=== PATIENT | female | born 1975 | race Caucasian/White ===

== ENCOUNTER 2018-05-15 21:27 | Emergency (ER) | payer MEDICAID ==
[2018-05-15 21:57] VITALS: BP 180/81
[2018-05-15] MEDS ORDERED: AMOXICILLIN TRIHYDRATE 500 MG CAPSULE PO ONE (22:28)
[2018-05-15] MEDS ORDERED: LIDOCAINE 2% VISCOUS SOLN 20 ML UDCUP PO ONE (22:28)
--- NOTE | 2018-05-15 22:33 | ER Document Report ---
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 She states that this tooth has had a hole in it for about 6 months. She states she is put a temporary putty into her tooth to help with the pain. She denies being allergic to any medications but states there are a lot of things she can take because of her heart problems. She states she takes amoxicillin not Pen- Vee K due to her heart. - HPI Patient complains to provider of: Toothache Onset: Other - Pain 2-3 days holding her to 6 months Onset: Gradual Quality of pain: Sharp, Throbbing Severity: Severe Pain Level: 5 Associated symptoms: Toothache Worsened by: Cold Relieved by: Nothing Similar symptoms previously: Yes Recently seen / treated by doctor/dentist: No Past Medical History - General Information source: Patient - Social History Smoking Status: Never Smoker Cigarette use (# per day): No Chew tobacco use (# tins/day): No Smoking Education Provided: No Frequency of alcohol use: Occasional Drug Abuse: None Lives with: Spouse/Significant other Family History: Reviewed & Not Pertinent Patient has suicidal ideation: No Patient has homicidal ideation: No - Medical History Medical History: Other - deaf - Past Medical History Cardiac Medical History: Reports: Hx Hypertension, Other - dextrocardia pacemaker Pulmonary Medical History: Reports: None EENT Medical History: Reports: Ears - deaf Neurological Medical History: Reports: None Endocrine Medical History: Reports: None Renal/ Medical History: Reports: None Malignancy Medical History: Reports: None GI Medical History: Reports: None Musculoskeletal Medical History: Reports Hx Musculoskeletal Trauma Skin Medical History: Reports None Psychiatric Medical History: Reports: None Traumatic Medical History: Reports: Hx Fractures - thumb Infectious Medical History: Reports: None Past Surgical History: Reports: Hx Open Heart Surgery, Hx Pacemaker, Other - Immunizations Immunizations up to date: Yes Review of Systems - Review of Systems Constitutional: No symptoms reported EENT: Mouth pain, Dental problem Cardiovascular: No symptoms reported Respiratory: No symptoms reported Gastrointestinal: No symptoms reported Genitourinary: No symptoms reported Female Genitourinary: No symptoms reported Musculoskeletal: No symptoms reported Skin: No symptoms reported Hematologic/Lymphatic: No symptoms reported Neurological/Psychological: No symptoms reported Physical Exam - Vital signs Vitals: Temp Pulse Resp BP Pulse Ox 98.8 F 80 16 180/81 H 97 05/15/18 21:56 05/15/18 21:56 05/15/18 21:56 05/15/18 21:56 05/15/18 21:56 Interpretation: Normal - General General appearance: Appears well, Alert - HEENT Head: Normocephalic, Atraumatic Eyes: Normal Pupils: PERRL Ears: Normal External canal: Normal Tympanic membrane: Normal Hearing loss: Left, Right Sinus: Normal Nasal: Normal Mouth/Lips: Caries Mucous membranes: Normal Teeth diagram: 1 - Dental pain: Large cavity Pharynx: Normal Neck: Normal - Respiratory Respiratory status: No respiratory distress Chest status: Nontender Breath sounds: Normal Chest palpation: Normal - Cardiovascular Rhythm: Regular Heart sounds: Normal auscultation Murmur: No - Abdominal Inspection: Normal Distension: No distension Bowel sounds: Normal Tenderness: Nontender Organomegaly: No organomegaly - Back Back: Normal, Nontender - Extremities General upper extremity: Normal inspection, Nontender, Normal color, Normal ROM , Normal temperature General lower extremity: Normal inspection, Nontender, Normal color, Normal ROM , Normal temperature, Normal weight bearing. No: Jayant's sign - Neurological Neuro grossly intact: Yes Cognition: Normal Orientation: AAOx4 [place] Coma Scale Eye Opening: Spontaneous Barry Coma Scale Verbal: Oriented Barry Coma Scale Motor: Obeys Commands [place] Coma Scale Total: 15 Speech: Normal Motor strength normal: LUE, RUE, LLE, RLE Sensory: Normal - Psychological Associated symptoms: Normal affect, Normal mood - Skin Skin Temperature: Warm Skin Moisture: Dry Skin Color: Normal Course - Re-evaluation Re-evalutation: 05/15/18 22:54 Patient was treated with amoxicillin and viscous lidocaine. Patient was discharged home with [facility] back. All questions and answers were written out by the provider and the patient. We attempted to get the [place] data base design analyst from our day but after a half an hour it still had not connected. Patient wrote out that she would prefer to just answer the questions by using pencil and paper. - Vital Signs Vital signs: Temp Pulse Resp BP Pulse Ox 98.8 F 80 16 180/81 H 97 05/15/18 21:56 05/15/18 21:56 05/15/18 21:56 05/15/18 21:56 05/15/18 21:56 Discharge - Discharge Clinical Impression: Pain due to dental caries Condition: Stable Disposition: HOME, SELF-CARE Additional Instructions: TOOTHACHE: Your pain is due to dental decay. The tooth must be repaired in order for you to feel better. You will, therefore, be referred to a dentist. We do not have dentists on the staff at [facility]. Severe swelling or drainage around a tooth usually means a dental abscess. This also requires evaluation and treatment by the dentist, but antibiotics may be prescribed while awaiting dental treatment. You should be rechecked immediately if you develop major swelling of the face, increasing pain, a lump in the jaw or gums, headache, difficulty swallowing, or fever. Amoxicillin Amoxicillin is a member of the penicillin family. It covers the germs likely to cause ear, bronchial, and urinary infections better than plain penicillin. Amoxicillin can be taken without regard to meals. Nausea after taking the medication is rare, but can occur. Diarrhea can occur, particularly in small children. Vaginal yeast infections and oral thrush in infants are also common. Contact your physician if these problems occur. Allergy to penicillins is common. If you have had an allergic reaction to any drug of the penicillin family, you should never take any other penicillin. Notify your doctor at once if you develop hives, itching, swelling, faintness, or shortness of breath. Less serious side effects can include nausea or diarrhea. Oral Narcotic Medication You have been given a [employer] dispense pack for pain control. This medication is a narcotic. It's best taken with food, as nausea can result if taken on an empty stomach. Don't operate machinery or drive within six hours of taking this medication. Do not combine this medicine with alcohol, or with any medication which can cause sedation (such as cold tablets or sleeping pills) unless you get permission from the physician. Narcotics tend to cause constipation. If possible, drink plenty of fluids and eat a diet high in fiber and fruits. Viscous lidocaine can be used every 2-3 hours while awake for your pain. These call dentist in the morning and schedule follow-up appointment. FOLLOW-UP CARE: You have been referred for follow-up care to the dentists listed below. Call the dentists office for an appointment as you were instructed or within the next two days. If you experience worsening or a significant change in your symptoms, notify the physician immediately or return to the Emergency Department at any time for re-evaluation. [facility] [address] [place], [place] Thursday mornings, by appointment [facility] [address] [place] [address] [facility] [address] [facility] [address] [facility] [address] [facility] [email or web address] [facility] [address] [place] [address] Thursday- 8:00am to 5:00 pm Will see patients from other [place] [facility]. Charges based on income and family size and accepts Medicare, Medicaid, and Insurances Will pull molars [facility] [address] Hours of Operation 8:00 am - 4:30 pm weekdays The following dental offices accept Medicaid: [facility] Dr. Narvaez Dr. Sampson Dr. Garcia Dr. Clarke Mg [place], [place], and [place] oral surgery Dr. Hughes ([place]) Dr. Watson ([place]) [facility] Drs. Guzmán and Anthony ([place]) Dr. Lopez ([place]) [facility] Dr. Ulloa ([place]) Drs. Cooley and ([place]) Medicaid Care Line Prescriptions: Amoxicillin 875 mg PO BID #20 tablet Forms: Elevated Blood Pressure
[2018-05-15] MEDS ORDERED: HYDROCODONE/ACETAMINOPHEN 5-325 MG (6 TAB/ER DISP) PO PRN (22:45)
== END 2018-05-15 22:55 | disposition home or self-care (01) ==
LOC: ER 21:27
DX: K02.9 Dental caries, unspecified (principal); K08.89 Other specified disorders of teeth and supporting structures; I10 Essential (primary) hypertension; Q24.0 Dextrocardia; Z95.0 Presence of cardiac pacemaker
CPT/HCPCS: 99282; J3490

== ENCOUNTER → 2018-06-03 | Outpatient (CLI) | payer MEDICAID ==
[2018-06-03 15:24] LABS: ANION GAP 16 (5-19); BLOOD UREA NITROGEN 14 mg/dL (7-20); CALCIUM 9.9 mg/dL (8.4-10.2); CARBON DIOXIDE 22 mmol/L (22-30); CHLORIDE 103 mmol/L (98-107); GLUCOSE 85 mg/dL (75-110); POTASSIUM 4.5 mmol/L (3.6-5.0); SODIUM 140.7 mmol/L (137-145)
== END ==
LOC: LAB 14:44
PROVIDERS: ATTEND Family Medicine
DX: R19.02 Left upper quadrant abdominal swelling, mass and lump (principal)
CPT/HCPCS: 36415; 80048

== ENCOUNTER → 2018-06-10 | Outpatient (CLI) | payer MEDICAID ==
--- NOTE | 2018-06-10 13:53 | RADIOLOGY REPORT (SQ) ---
EXAM DESCRIPTION: CT ABD/PELVIS WITH IV ONLY COMPLETED DATE/TIME: 06/10/2018 10:33 am REASON FOR STUDY: LEFT UPPER QUADRANT ABDOMINAL SWELLING, MASS AND LUMP R19.02 LEFT UPPER QUADRANT ABDOMINAL SWELLING, MASS AND LUMP COMPARISON: None. TECHNIQUE: CT scan of the abdomen and pelvis performed using helical scanning technique with dynamic intravenous contrast injection. No oral contrast. Images reviewed with lung, soft tissue, and bone windows. Reconstructed coronal and sagittal MPR images reviewed. Delayed images for evaluation of the urinary system also acquired. All images stored on PACS. All CT scanners at this facility use dose modulation, iterative reconstruction, and/or weight based d osing when appropriate to reduce radiation dose to as low as reasonably achievable (ALARA). [facility]: Dose Right [facility]: CareDose [facility]: Dose Right [facility]: Teradose 4D [facility]: Physician Referral Network (PRN) CONTRAST TYPE AND DOSE: contrast/concentration: Isovue 350.00 mg/ml; Total Contrast Delivered: 54.0 ml; Total Saline Delivered: 65.0 ml RENAL FUNCTION: None required. The patient is less than 50 years old. RADIATION DOSE: CT Rad equipment meets quality standard of care and radiation dose reduction techniq ues were employed. CTDIvol: 2.4 - 2.8 mGy. DLP: 260 mGy-cm.. LIMITATIONS: Respiratory motion, artifact from indwelling battery pack in the left mid abdomen. FINDINGS: LOWER CHEST: The patient's heart lies in the right hemithorax consistent with dextrocardia . LIVER: Normal size. No masses. No dilated ducts. SPLEEN: Normal size. No focal lesions. PANCREAS: No masses. No significant calcifications. No adjacent inflammation or peripancreatic fluid collections. Pancreatic duct not dilated. GALLBLADDER: There are layering gallstones. ADRENAL GLANDS: No significant masses or asymmetry. RIGHT KIDNEY AND URETER: No solid masses. No significant calcifications. No hydronephrosis or hyd roureter. LEFT KIDNEY AND URETER: No solid masses. No significant calcifications. No hydronephrosis or hydr oureter. AORTA AND VESSELS: No aneurysm. No dissection. Renal arteries, SMA, celiac without stenosis. RETROPERITONEUM: No retroperitoneal adenopathy, hemorrhage or masses. BOWEL AND PERITONEAL CAVITY: No masses or inflammatory changes. No free fluid or peritoneal masses. APPENDIX: Normal. PELVIS: There is a small right adnexal lesion consistent with ovarian cyst. ABDOMINAL WALL: No masses. No hernias. BONES: No significant or acute findings. OTHER: No other significant finding. IMPRESSION: 1. Dextrocardia. 2. No acute findings in the abdomen or pelvis. Specifically no mass or swelling in the left upper q uadrant. The patient does have a battery pack in the subcutaneous tissue just left of midline. TECHNICAL DOCUMENTATION: JOB ID: [id number] Quality ID # [id number]: Final reports with documentation of one or more dose reduction techniques (e.g., Au tomated exposure control, adjustment of the mA and/or kV according to patient size, use of iterative reconstruction technique) 2010 [employer]- All Rights Reserved Reading location - IP/workstation name: [email or web address]
== END ==
LOC: RAD 09:42
PROVIDERS: ATTEND Internal Medicine
DX: R19.02 Left upper quadrant abdominal swelling, mass and lump (principal)
CPT/HCPCS: 74177

== ENCOUNTER → 2018-08-16 | Outpatient (CLI) | payer MEDICAID | LOC: WI 13:55 | PROVIDERS: ATTEND Family Medicine | DX: Z12.31 Encounter for screening mammogram for malignant neoplasm of breast (principal) | CPT/HCPCS: 77067 ==

== ENCOUNTER 2018-08-29 15:58 | Emergency (ER) | payer MEDICAID ==
--- NOTE | 2018-08-29 18:02 | RADIOLOGY REPORT (SQ) ---
EXAM DESCRIPTION: RIBS LEFT W/PA CHEST COMPLETED DATE/TIME: 08/29/2018 5:52 pm REASON FOR STUDY: hit left ribs on kitchen table/ is dextracardic COMPARISON: None. TECHNIQUE: Frontal view of the chest and additional views of the left ribs acquired. NUMBER OF VIEWS: Three view. LIMITATIONS: None. FINDINGS: FRONTAL CXR: Dextrocardia. No pneumothorax. RIBS: No displaced rib fractures. No lytic or blastic bony lesions. OTHER: No other significant finding. IMPRESSION: NO PNEUMOTHORAX. NO DISPLACED RIB FRACTURES. COMMENT: SITE OF TRAUMA/COMPLAINT MARKED/STAMP COMPLETED: No TECHNICAL DOCUMENTATION: JOB ID: [id number] [employer]- All Rights Reserved Reading location - IP/workstation name: [email or web address]
[2018-08-29 18:18] VITALS: BP 136/72
--- NOTE | 2018-08-29 18:41 | ER Document Report ---
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 We seem to communicate well this way. Patient tells me that prior to her coming to the hospital tonight and she was attempting to get some type of a cookingturkey edition I believe off the shelf when she was coming down with that she tripped and fell and she landed on the kitchen table countertop and landed on her left ribs. She is complaining of shortness of breath hurts to take a deep breath and hurts to touch the area. She denies any other injuries at this time and is concerned she might of broke a rib. - CONSTITUTIONAL Constitutional: DENIES: Fever, Chills - EENT EENT: DENIES: Sore Throat, Ear Pain, Nasal Drainage-Clear, Nasal Drainage- Purulent, Congestion, Eye problems - NEURO Neurology: DENIES: Headache, Weakness, Vision blurred, Dizzinesss / Vertigo - CARDIOVASCULAR Cardiovascular: REPORTS: Chest pain - RESPIRATORY Respiratory: REPORTS: Trouble Breathing - GASTROINTESTINAL Gastrointestinal: DENIES: Abdominal Pain, Nausea, Patient vomiting, Diarrhea, Constipation, Black / Bloody Stools - URINARY Urinary: DENIES: Dysuria, Urgency, Frequency - REPRODUCTIVE Reproductive: DENIES: :, Postmenopausal, Abnormal bleeding / discharge - MUSCULOSKELETAL Musculoskeletal: DENIES: Extremity pain, Back Pain, Neck Pain, Swelling - DERM Skin Color: Normal, Petechiae Skin Problems: None, Abrasion Past Medical History - General Information source: Patient - Social History Smoking Status: Never Smoker Cigarette use (# per day): No Chew tobacco use (# tins/day): No Frequency of alcohol use: None Drug Abuse: None Family History: Reviewed & Not Pertinent Patient has suicidal ideation: No Patient has homicidal ideation: No - Medical History Medical History: Negative - Past Medical History Cardiac Medical History: Reports: None, Hx Hypertension Renal/ Medical History: Denies: Hx Peritoneal Dialysis Musculoskeletal Medical History: Reports Hx Musculoskeletal Trauma Traumatic Medical History: Reports: Hx Fractures - thumb Past Surgical History: Reports: Hx Open Heart Surgery, Hx Pacemaker, Other - Immunizations Immunizations up to date: Yes Vertical Provider Document - CONSTITUTIONAL Agree With Documented VS: Yes Exam Limitations: No Limitations, Other - As stated we used the eye filled for communication where I spoke into it and he gave the sentences that I spoke and she type back the answers. General Appearance: WD/WN, No Apparent Distress, Other - Uncomfortable appearing - INFECTION CONTROL TRAVEL OUTSIDE OF THE [place] IN LAST 30 DAYS: No - HEENT Notes: As stated is a well-nourished well-developed 42-year-old female who has a history of being a deaf mute. As stated we did communicate through her iPhone with me talking into it and her typing. We had no communication gap or problem. - NECK Neck: Normal Inspection, Supple, Thyroid Normal. negative: Lymphadenopathy-Left , Lymphadenopathy-Right - RESPIRATORY Respiratory: Breath Sounds Normal, No Respiratory Distress. negative: Chest Non -Tender, Rales, Rhonchi, Wheezing - CARDIOVASCULAR Cardiovascular: Regular Rate, Regular Rhythm, No Murmur - GI/ABDOMEN Gastrointestinal: Abdomen Soft, Abdomen Non-Tender. negative: Abdomen Tender, Abdominal Guarding, Abdominal Rebound, No Organomegaly, Hepatomegaly, Spleenomegaly, Abdominal Mass, Normal Bowel Sounds, Abnormal Bowel Sounds - BACK Back: Normal Inspection. negative: Abnormal Inspection, CVA Tenderness-Right, CVA Tenderness-Left - DERM Integumentary: Warm, Dry Adult Front & Back Diagram: 1 - Area of discomfort in the area of small abrasion. There is no ecchymosis noted. Notes: Stated patient shows just a area of abrasions along the left anterior lateral ribs. There does appear to be some history and treated to the rib contusions the patient was telling us about earlier. She did fall and land on that side on a table. At this present time I see no evidence of fractures and x-rays support that. Patient basically has bruised the ribs and it hurts. Course - Re-evaluation Re-evalutation: 08/29/18 18:42 I ensure patient actually hurt her ribs secondary to the visualization of the abrasions but also when the tenderness to palpation. I want to place her on a little bit of a muscle relaxer and a little bit of pain medication for couple of days. I have explained to her she is to take deep breaths or she will end up back here with pneumonia. She is acknowledged understanding of this through the iPhone. Patient acknowledged the understanding of having to take deep breaths and to splint herself. She has had open heart surgery in the past but he has of her dextrocardia at a young age. She will make herself take a deep breaths will return to ER if she has any concerns or problems. 08/29/18 21:00 - Vital Signs Vital signs: Temp Pulse Resp BP Pulse Ox 98.4 F 80 18 136/72 H 97 08/29/18 18:16 08/29/18 18:16 08/29/18 18:16 08/29/18 18:16 08/29/18 18:16 Discharge - Discharge Clinical Impression: Contusion of rib on left side Qualifiers: Encounter type: initial encounter Qualified Code(s): S20.212A - Contusion of left front wall of thorax, initial encounter Contusion, chest wall Qualifiers: Encounter type: initial encounter Laterality: left Qualified Code(s): S20.212A - Contusion of left front wall of thorax, initial encounter Condition: Stable Disposition: HOME, SELF-CARE Instructions: Rib Contusion ([facility]) Additional Instructions: Home and rest. As we discussed this easy for me to tell you that you did not break ribs but they hurt this bad. In reality bruised ribs hurt just as bad as fractured ribs. Is because you use them to do everything cough take deep breaths lift move lay down the ribs do everything. As we also discussed you must make yourself take deep breaths even though it hurts because if you do not you would be back in with pneumonia. As we also talked about you can use a pillow to hold against the area that hurts and this helps you take a deep breath with less pain. Should you have any concerns or problems during the recovery. Return to ER for a recheck. Highly suggest that you contact your primary care provider and have a follow-up visit with them sometime within the next 5-10 days. Prescriptions: Cyclobenzaprine HCl [Flexeril 10 mg Tablet] 10 mg PO TIDP PRN #21 tablet PRN Reason: Hydrocodone/Acetaminophen [[place] 5-325 Tablet] 1 each PO Q6 PRN #15 tablet PRN Reason: Forms: Elevated Blood Pressure Referrals: HUMA JHAVERI MD [Primary Care Provider] - Follow up as needed
[2018-08-29] MEDS ORDERED: HYDROCODONE/ACETAMINOPHEN 5-325 MG TABLET PO ONE (18:48)
== END 2018-08-29 18:57 | disposition home or self-care (01) ==
LOC: ER 15:58
DX: S20.212A Contusion of left front wall of thorax, initial encounter (principal); R07.81 Pleurodynia; W19.XXXA Unspecified fall, initial encounter; W22.03XA Walked into furniture, initial encounter; Y93.89 Activity, other specified; R06.02 Shortness of breath; H91.3 Deaf nonspeaking, not elsewhere classified; I10 Essential (primary) hypertension
CPT/HCPCS: 99283

== ENCOUNTER → 2019-01-21 | Outpatient (CLI) | payer MEDICAID | LOC: LAB 12:53 | PROVIDERS: ATTEND Pediatrics Pediatric Cardiology | DX: Z01.812 Encounter for preprocedural laboratory examination (principal) | CPT/HCPCS: 36415; 84702 ==

== ENCOUNTER → 2019-08-18 | Outpatient (CLI) | payer MEDICAID ==
--- NOTE | 2019-08-18 12:25 | WOMENS IMAGING REPORT ---
EXAM DESCRIPTION: 3D SCREENING MAMMO BILAT COMPLETED DATE/TIME: 08/18/2019 11:26 am REASON FOR STUDY: Z12.31 SCREENING MAMMO Z12.31 ENCNTR SCREEN MAMMOGRAM FOR MALIGNANT NEOPLASM OF B RE COMPARISON: 2018 EXAM PARAMETERS: Views: Standard craniocaudal and mediolateral oblique views of each breast recorded using digital acquisition and breast tomosynthesis. Read with the assistance of CAD. .[facility] - [employer] Operator Version 9.2 LIMITATIONS: None. FINDINGS: No suspicious masses, suspicious calcifications or architectural distortion. No areas of c oncern. IMPRESSION: NEGATIVE MAMMOGRAM. BIRADS 1. BREAST DENSITY: c. The breasts are heterogeneously dense, which may obscure small masses. BIRAD: ASSESSMENT: 1 NEGATIVE RECOMMENDATION: ROUTINE SCREENING COMMENT: The patient has been notified of the results by letter per SA requirements. Additional no tification policies are in place for contacting patient with suspicious or incomplete findings. Quality ID #[id number]: The [employer] recommends an annual screening mammogram for women aged 40 years or over. This facility utilizes a reminder system to ensure that all patients receive reminder letters, and/or direct phone calls for appointments. This includes reminders for routine scr eening mammograms, diagnostic mammograms, or other Breast Imaging Interventions when appropriate. Th is patient will be placed in the appropriate reminder system. TECHNICAL DOCUMENTATION: FINDING NUMBER: (1) ASSESSMENT: (1) JOB ID: [id number] [employer]- All Rights Reserved Reading location - IP/workstation name: [email or web address]
== END ==
LOC: WI 10:50
PROVIDERS: ATTEND Family Medicine
DX: Z12.31 Encounter for screening mammogram for malignant neoplasm of breast (principal)
CPT/HCPCS: 77063; 77067

== ENCOUNTER 2020-06-07 21:11 | Emergency (ER) | payer MEDICAID ==
[2020-06-07] MEDS ORDERED: ACETAMINOPHEN 325 MG TABLET PO ONE (21:26)
--- NOTE | 2020-06-07 21:33 | ER Document Report ---
ED Extremity Problem, Lower - General Chief Complaint: Ankle Injury Stated Complaint: ANKLE INJURY Time Seen by Provider: 06/07/20 21:16 Primary Care Provider: HUMA JHAVERI MD [Primary Care Provider] - Follow up as needed ENEDINA GUARDADO JR, DO [ACTIVE PROVISIONAL STAFF] - Follow up as needed Mode of Arrival: Wheelchair Information source: Patient Cannot obtain history due to: Other - Patient is deaf used mac developer [id number] Notes: 44-year-old female presented to ED for complaint of to her left ankle for the last 3 days. She states while he was sleeping the put his leg over top of her leg and when she tried to get it out it bent her ankle backwards. She states she thought the pain will go away but is getting worse instead of better. She does have swelling to the left ankle. 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 She states she also has blood pressure that gets high and low but her doctor has told her that is normal for her condition she states she was also told that her blood pressure always had to be taken in her leg. She states she also has endometriosis and is supposed to get a hysterectomy next week. She does have an IUD and does not have history of cycles. She states 2 weeks ago she was tested for Covera and it was negative. She is completely deaf as well as her . I did use [employer] latin dancer [id number]. REVIEW OF SYSTEMS: Patient is completely deaf uses Moldovan sign language we did use the Martti to complete this interview CONSTITUTIONAL : Denies fever, chills, or sweats. Denies recent illness. EENT: Denies eye, ear, throat, or mouth pain or symptoms. Denies nasal or sinus congestion. CARDIOVASCULAR: Patient has a history of dextrocardia but is not having any discomfort at this time. MUSCULOSKELETAL: Patient does have a swollen discolored tender left ankle SKIN: Slight ecchymosis to the left ankle ALL OTHER SYSTEMS REVIEWED AND NEGATIVE. VITAL SIGNS: Within normal limits. GENERAL: No acute distress, non-toxic appearance. CHEST: Clear breath sounds bilaterally. No wheezes, rales, or rhonchi. MUSCULOSKELETAL: Mild swelling and ecchymosis to the left ankle very tender to palpation. She is able to move the ankle full range of motion but with pain. SKIN: Mild swelling and ecchymosis to the left ankle TRAVEL OUTSIDE OF THE [place] IN LAST 30 DAYS: No - HPI Patient complains to provider of: Injury, Pain, Swelling Location: Ankle Occurred: Other - Left 3 days ago Where: Home, Indoors Onset/Duration: Persistent Quality of pain: Achy Severity: Severe Pain Level: 5 Context: Other - States her ankle was twisted in bed by her 's leg going over top of her leg and bending her ankle backwards Recent injury: Yes Associated symptoms: Painful ambulation Exacerbated by: Hanging down, Movement, Walking Relieved by: Elevation, Ice, Rest - Related Data Allergies/Adverse Reactions: diphenhydramine [From Benadryl] Allergy (Verified 08/29/18 16:07) fire ant Allergy (Verified 08/29/18 16:07) latex Allergy (Verified 08/29/18 16:07) bees Allergy (Uncoded 08/29/18 16:07) cantalope Allergy (Uncoded 08/29/18 16:07) Past Medical History - General Information source: Patient - Social History Smoking Status: Never Smoker Frequency of alcohol use: Social Drug Abuse: None Lives with: Family Family History: Reviewed & Not Pertinent Patient has suicidal ideation: No Patient has homicidal ideation: No - Past Medical History Cardiac Medical History: Reports: Hx Hypertension, Other - Dextrocardia Pulmonary Medical History: Reports: None EENT Medical History: Reports: None Neurological Medical History: Reports: None Endocrine Medical History: Reports: None Renal/ Medical History: Reports: Other - Endometriosis Malignancy Medical History: Reports: None GI Medical History: Reports: None Musculoskeletal Medical History: Reports Hx Musculoskeletal Trauma Skin Medical History: Reports None Psychiatric Medical History: Reports: None Traumatic Medical History: Reports: Hx Fractures - thumb Infectious Medical History: Reports: None Past Surgical History: Reports: Hx Open Heart Surgery, Hx Pacemaker, Other - Immunizations Immunizations up to date: Yes Physical Exam - Vital signs Vitals: Temp Pulse BP Pulse Ox 98.2 F 88 153/84 H 99 06/07/20 22:52 06/07/20 22:52 06/07/20 22:52 06/07/20 22:52 Course - Re-evaluation Re-evalutation: 06/08/20 00:15 The patient is nontoxic appearing with stable vitals. They are afebrile. Ankle exam shows no deformities with no obvious ligament instability. There is a normal pulse and sensation distally. There is no redness or signs of infection. X-rays show no acute fracture per the radiologist. Patient will be placed in an Davon wrap for comfort. Crutches will be offered and given if requested. Patient will be instructed to follow-up with not better in 1 week, sooner for increasing pain, fever, redness, numbness, tingling, weakness, any further concerns. Patient will be instructed to rest, ice, elevate their ankle. Ezio BENITEZ insulated using Moldovan sign language to get the instructions for the patient. Patient and both are deaf and when we used a Martti latin dancer earlier it seemed to be some confusion because they were talking amongst himself while I was trying to talk to the can tender. Discharge instructions were much easier with a person present translating [id number] between the and and myself. Patient was able to verbalize understanding and agreement with treatment plan and patient was discharged home. I had ordered crutches. Patient was not able to use the crutches so they were not sent home with her. They did decide they would prefer to go to [facility] and get a cane to use with her Davon wrap and stirrup splint. Patient and did verbalize understanding that she needs to follow-up with orthopedics. - Vital Signs Vital signs: Temp Pulse Resp BP Pulse Ox 98.2 F 88 153/84 H 99 06/07/20 22:52 06/07/20 22:52 06/07/20 22:52 06/07/20 22:52 - Diagnostic Test Radiology reviewed: Image reviewed, Reports reviewed Procedures - Immobilization Left Ankle Time completed: 22:50 Pre-Proc Neuro Vasc Exam: Normal Immobilizer type: Davon wrap, Ankle stirrup Performed by: PCT Post-Proc Neuro Vasc Exam: Normal Alignment checked and good: Yes Discharge - Discharge Clinical Impression: Left ankle injury Qualifiers: Encounter type: initial encounter Qualified Code(s): S99.912A - Unspecified i njury of left ankle, initial encounter Condition: Stable Disposition: HOME, SELF-CARE Additional Instructions: SPRAINED ANKLE: Your sprained ankle results from stretching or tearing of the ligaments which support the ankle. This usually results from twisting the foot inward and under. The ligaments will require time and protection in order to heal properly. Many ankle sprains are quite disabling, and should be taken seriously. The usual treatment for an ankle sprain is cold packs; protection with tape, splints, or wraps; elevation; and staying off the ankle for at least a day. As the ankle improves, you can walk IF it's not painful to bear weight. Sports are best postponed until healing is complete. More serious sprains usually require strengthening exercises after early healing. Your physician has assessed the seriousness of the ligament injury to your ankle. However, the treatment may change, depending on how your ankle progresses. If further exams were recommended, it is important that you follow through. Call the doctor if your foot becomes numb, painful, or severely swollen. ANKLE STIRRUP SPLINT: You are to use an ankle brace called a stirrup splint. This type of brace allows you to place greater stresses on the ankle without risk of re-injury, and is often used for more severe ankle injuries such as avulsion fractures and ligament ruptures. The splint can be worn over a sock or tape. For proper support, wear the splint with a shoe over it. It's important that the splint fit properly. Adjust the heel tension, if needed. If your splint has air bladders, peel back the bottom of each air bladder, then move the Velcro attachment of the heel strap up or down. Air bladder pressure can be adjusted by pulling up the valve at the top, threading the air tube down into the main bladder, then blowing air into the bladder or squeezing it out. The two sides of the stirrup can be moved forward or back on your ankle by changing the attachment of the main straps. If you are unable to use the ankle comfortably in the splint, return for re-evaluation. DAVON WRAP: A compression dressing (davon wrap) has been placed. This helps hold the area still. It limits swelling and internal bleeding. The wrap should be comfortably snug -- not tight. You should feel a sense of pressure, but not severe pain under the wrap. Unless the physician tells you otherwise, you can adjust the wrap for comfort. If the wrap causes symptoms suggesting it's too tight -- uncomfortable pressure, swelling or discoloration beyond the wrap, numbness, or severe pain -- you must loosen the wrap. If these symptoms don't resolve promptly, return for re-evaluation. USE OF CRUTCHES: The doctor has recommended that you not bear weight at this time. You will need to use crutches. Adjust the crutches so the tops come to about two inches under the armpit while you are standing upright. Use your hands -- not your armpits -- to support your weight. To get into a chair, support yourself with one crutch on the injured side. Hold the chair with the other hand, then lower yourself while putting all your weight on the good leg. Going up stairs is `good leg up, step up, then bring up crutches and bad leg.' Down stairs is `bad leg and crutches down, then bring good leg down.' If you develop numbness or swelling in an arm or hand, you are using the crutches incorrectly. Return if you are having any problems with the crutches. ICE & ELEVATION: Apply ice packs frequently against the painful area. Many different schedules are recommended, such as "20 minutes on, 20 minutes off" or "one hour ice, two hours rest." If you need to work, you may need to go longer between ice treatments. You should plan to have the area ice packed AT LEAST one-fourth of the time. The ice should be applied over the wrap, tape, or splint, or over a layer of cloth -- not directly against the skin. Some ice bags have a built-in cloth and can be put directly on the skin. Your injured part should be elevated as much as possible over the next 48 hours. Try to keep the injury above the level of the heart. Avoid use of the injured area. Elevation and rest will decrease the swelling. USE OF [id number] IBUPROFEN: Ibuprofen (Advil, Nuprin, Medipren, Motrin IB) is a medication for fever and pain control. In addition, it has anti- inflammatory effects which may be beneficial, especially in the treatment of injuries. It's best to take ibuprofen with food. Persons with ulcer disease or allergy to aspirin should notify their physician of this before taking ibuprofen. Ibuprofen can be given every four to six hours, for a total of four doses daily. Age Pain or fever dose Antiinflammatory dose 6-8 yr 200 mg (1 tab) 200 mg (1 tab) 9-11 yr 200 mg (1 tab) 200-400 mg (1-2 tab) 11-14 yr 200-400 mg (1-2 tab) 400 mg (2 tab) 15-adult 400 mg (2 tab) 600 mg (3 tab) ORAL NARCOTIC MEDICATION: You have been given a prescription for pain control. This medication is a narcotic. It's best taken with food, as nausea can result if taken on an empty stomach. Don't operate machinery or drive within six hours of taking this medication. Do not combine this medicine with alcohol, or with any medication which can cause sedation (such as cold tablets or sleeping pills) unless you get permission from the physician. Narcotics tend to cause constipation. If possible, drink plenty of fluids and eat a diet high in fiber and fruits. Please be aware that prescription narcotics also have the potential for abuse. People become addicted to these medications because of the general sense of wellbeing that they induce. This feeling along with a significant reduction in tension, anxiety, and aggression provides a stimulating seductive quality to these drugs. Once your pain is under control, we encourage you to discard your unused narcotics. FOLLOW-UP CARE: If you have been referred to a physician for follow-up care, call the physicians office for an appointment as you were instructed or within the next two days. If you experience worsening or a significant change in your symptoms, notify the physician immediately or return to the Emergency Department at any time for re-evaluation. Forms: Elevated Blood Pressure Referrals: HUMA JHAVERI MD [Primary Care Provider] - Follow up as needed ENEDINA GUARDADO JR, DO [ACTIVE PROVISIONAL STAFF] - Follow up as needed
--- NOTE | 2020-06-07 22:11 | RADIOLOGY REPORT (SQ) ---
3 VIEWS OF LEFT FOOT AND ANKLE HISTORY: Foot and ankle pain. COMPARISON: None. FINDINGS: The ankle mortise is preserved on these nonstress views. No acute fracture is seen. There is surrounding soft tissue swelling. IMPRESSION: Mild soft tissue swelling, without acute fracture seen.
[2020-06-07] MEDS ORDERED: HYDROCODONE/ACETAMINOPHEN 5-325 MG (6 TAB/ER DISP) PO PRN (22:43)
[2020-06-08 01:44] VITALS: BP 151/92
== END 2020-06-07 23:10 | disposition home or self-care (01) ==
LOC: ER 21:11
DX: S90.02XA Contusion of left ankle, initial encounter (principal); X50.0XXA Overexertion from strenuous movement or load, initial encounter; Y92.009 Unspecified place in unspecified non-institutional (private) residence as the place of occurrence of the external cause; Q24.0 Dextrocardia; H91.93 Unspecified hearing loss, bilateral; I10 Essential (primary) hypertension; Z95.0 Presence of cardiac pacemaker; Z97.5 Presence of (intrauterine) contraceptive device; Z88.8 Allergy status to other drugs, medicaments and biological substances; Z91.038 Other insect allergy status; Z91.040 Latex allergy status; Z91.030 Bee allergy status; Z91.018 Allergy to other foods
CPT/HCPCS: 99284; 73610; 73630; J3490

== ENCOUNTER 2020-10-23 15:30 | Emergency (ER) | payer MEDICAID ==
[2020-10-23] MEDS ORDERED: IBUPROFEN 800 MG TABLET PO ONE (15:52)
--- NOTE | 2020-10-23 15:58 | ER Document Report ---
HPI - HPI Time Seen by Provider: 10/23/20 15:51 Notes: 44-year-old female who is deaf presents to the emergency room today for complaints of right wrist pain 10 days ago, reports that she woke up with the pain, 4 out of 5. Reports she did take medication this morning around 0830 without full relief. Denies any trauma to her wrist. Reports that she is right-hand dominant. eating and drinking without issues. denies any numbness or tingling. Patient is right-hand dominant. 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 denies fevers, chills, chest pain,palpitations, shortness of breath, dyspnea, nausea, vomiting, diarrhea, abdominal pain, hematuria,blurred vision, double vision, loss of vision, speech changes, LH, dizziness, syncope, headaches, wheezing, ST, URI, neck pain, weakness, bowel or bladder dysfunction, saddle anesthesia, numbness or tingling in bilateral upper or lower extremities equally, muscle paralysis, weakness in bilateral upper or lower extremities equally or rash. Denies IV drug use. - REPRODUCTIVE Reproductive: DENIES: : Past Medical History - General Information source: Patient, Relative - Social History Smoking Status: Unknown if Ever Smoked Family History: Reviewed & Not Pertinent - Past Medical History Cardiac Medical History: Reports: Hx Hypertension Renal/ Medical History: Denies: Hx Peritoneal Dialysis Musculoskeletal Medical History: Reports Hx Musculoskeletal Trauma Traumatic Medical History: Reports: Hx Fractures - thumb Past Surgical History: Reports: Hx Open Heart Surgery, Hx Pacemaker, Other - Immunizations Immunizations up to date: Yes Vertical Provider Document - CONSTITUTIONAL Agree With Documented VS: Yes Exam Limitations: No Limitations General Appearance: WD/WN Notes: MEDICATIONS: I agree with the patient medications as charted by the RN. ALLERGIES: I agree with the allergies as charted by the RN. PAST MEDICAL HISTORY/PAST SURGICAL HISTORY: Reviewed and agree as charted by RN. SOCIAL HISTORY: Reviewed and agree as charted by RN. FAMILY HISTORY: No significant familial comorbid conditions directly related to patient complaint EXAM: Reviewed vital signs as charted by RN. PHYSICAL EXAMINATION: reviewed vital signs by RN GENERAL: Well-appearing, well-nourished and in no acute distress. HEAD: Atraumatic, normocephalic. EYES: Pupils equal round and reactive to light, extraocular movements intact, c onjunctiva are normal. ENT: Nares patent, oropharynx clear without exudates. Moist mucous membranes. NECK: Normal range of motion, supple without lymphadenopathy LUNGS: Breath sounds clear to auscultation bilaterally and equal. No wheezes rales or rhonchi. HEART: Regular rate and rhythm without murmurs ABDOMEN: Soft, nontender, nondistended abdomen. No guarding, no rebound. No masses appreciated. Female : deferred Musculoskeletal: Normal range of motion, no pitting or edema. No cyanosis. Noted right wrist pain with flexion, extension, inversion, eversion of wrist. digits in right and left with full aprom.. Rate Setter + 2 BUE equally. Snuffbox tenderness negative on right. radial pulses + 2 BUE equally. Negative kanavels sign. No open wounds or drainage from wrist. No vascular compromise.No body crepitus or focal area of TTP. Limited ROM with flexion, extension, ulnar/radial deviation . Motor and sensory function of ulnar, radial, medial nerves intact bilaterally and equally. NEUROLOGICAL: Cranial nerves grossly intact. Normal speech, normal gait. Normal sensory, motor exams PSYCH: Normal mood, normal affect. SKIN: Warm, Dry, normal turgor, no rashes or lesions noted. - INFECTION CONTROL TRAVEL OUTSIDE OF THE [place] IN LAST 30 DAYS: No Course - Re-evaluation Re-evalutation: 10/23/20 16:00 Afebrile, vital stable no distress. Nurses notes reviewed. X-ray of right wrist negative for acute fracture, dislocation or foreign body does appear to be related to overuse or arthropathy. Advised to follow-up with creative services specialist within the next 3 days or so. A Velcro wrist splint has been applied to her right wrist. Consent by cheryl given to right cockup splint,. cms intact, sensory motor function intact in bilateral upper extremities prior to splint application velcro splint placed without incident. cms intact 20 minutes after splint application. Splint is in good alignment. Bilateral upper extremities with motor and sensory function intact 20 minutes after application. Pt stated that splint felt comfortable. advise alternate Tylenol ibuprofen throughout the day. Apply heat 20 minutes on 20 minutes off several times a day. Follow-up with creative services specialist as well as primary care provider within the next 24 to 48 hours. After performing a Medical Screening Examination, I estimate there is LOW risk for OPEN FRACTURE, COMPARTMENT SYNDROME, DEEP VENOUS THROMBOSIS, ACUTE TENDON RUPTURE, or NEUROVASCULAR INJURY thus I consider the discharge disposition reasonable. I have reevaluated this patient multiple times and no significant life threatening changes are noted. The patient and I have discussed the diagnosis and risks, and we agree with discharging home to closely follow-up with their primary doctor or the referral orthopedist with the understanding that symptoms and presentations can change. We also discussed returning to the Emergency Department immediately if new or worsening symptoms occur. We have discussed the symptoms which are most concerning (e.g., changing or worsening pain, numbness, weakness) that necessit ate immediate return 10/23/20 17:17 - Vital Signs Vital signs: Temp Pulse Resp BP Pulse Ox 97.3 F 79 18 135/80 H 98 10/23/20 15:34 10/23/20 15:34 10/23/20 15:34 10/23/20 15:34 10/23/20 15:34 - Laboratory Results Critical Laboratory Results Reviewed: No Critical Results - Radiology Results Critical Radiology Results Reviewed: No Critical Results Discharge - Discharge Clinical Impression: Right wrist pain Condition: Stable Disposition: HOME, SELF-CARE Instructions: Wrist Sprain ([facility]) Additional Instructions: Your x-ray was negative for any acute fracture dislocation or foreign body. It does appear that you have a bit of arthritis in your right wrist, this is likely from overuse. It is advised that you apply heat 20 minutes on 20 minutes off several times a day, wear your wrist brace as directed and follow-up with an creative services specialist as well as your primary care provider within the next 3 to 4 days. You can alternate between Tylenol and the naproxen as needed. Return immediately for any new or worsening symptoms. Follow up with primary care provider, call tomorrow to make followup appointment. Prescriptions: Naproxen 500 mg PO BID #10 tablet Referrals: HUMA JHAVERI MD [Primary Care Provider] - Follow up as needed SHAWNEE SILVERMAN MD [ACTIVE STAFF] - Follow up in 3-5 days
--- NOTE | 2020-10-23 16:33 | RADIOLOGY REPORT (SQ) ---
EXAM DESCRIPTION: WRIST RIGHT 3 VIEWS IMAGES COMPLETED DATE/TIME: 10/23/2020 4:09 pm REASON FOR STUDY: Right wrist pain x 10 days, no trauma COMPARISON: None. NUMBER OF VIEWS: Three views. TECHNIQUE: AP, lateral, and oblique radiographic images acquired of the right wrist. LIMITATIONS: None. FINDINGS: MINERALIZATION: Normal. BONES: No acute fracture or dislocation. No worrisome bone lesions. Normal alignment. SOFT TISSUES: No soft tissue swelling. No foreign body. OTHER: There appears to be a degree of calcium deposition involving the in wrist and ski a phone- tra pezium intervals, suggesting calcium deposition. IMPRESSION: No evidence of acute osseous injury or significant degenerative change. There appears t o be a degree of chondrocalcinosis which may be related to arthropathy, repetitive trauma, hyperparat hyroidism, renal osteodystrophy, etc TECHNICAL DOCUMENTATION: JOB ID: [id number] 2010 [employer]- All Rights Reserved Reading location - IP/workstation name: [email or web address]
[2020-10-23 17:17] VITALS: BP 129/67
== END 2020-10-23 17:15 | disposition home or self-care (01) ==
LOC: ER 15:30
DX: M25.531 Pain in right wrist (principal); I10 Essential (primary) hypertension
CPT/HCPCS: 99283; 73110; J3490